=== PATIENT | female | born 1955 | race Asian ===

== ENCOUNTER 2016-10-21 14:20 | Day surgery (SDC) | payer OTHER ==
[~2016-10-21] VITALS: Ht 165.1 cm; Wt 62.3 kg
[2016-10-21 14:57] VITALS: Ht 165.1 cm; Wt 62.3 kg
[2016-10-21] MEDS ORDERED: AMLO5TAB4 PO (15:03)
[2016-10-21] MEDS ORDERED: FENTAnyl 50 MCG/ML VIAL ONE (17:12)
[2016-10-21] MEDS ORDERED: MIDAZOLAM 1 MG/ML 2 ML INJ ONE (17:12)
--- NOTE | 2016-10-21 17:21 | GILP ---
DATE OF PROCEDURE: 10/21/2016 PROCEDURE: Screening colonoscopy to rule out colon polyps. SURGEON: Craig Day MD POSTOPERATIVE DIAGNOSES: 1. A 6 mm polyp noted with a very small pedicle. This was removed with the hot biopsy forceps and hemoclip was applied. 2. There is a 3 mm polyp noted at 20 cm from the anus. This was also removed with a cold biopsy fo rceps. 3. Minimal internal and minimal external hemorrhoids. DESCRIPTION OF PROCEDURE: After the informed written consent was obtained, the patient was asked to lie on the left lateral side. Intravenous anesthesia was given which included 2 mg of Versed and 7 5 mcg of fentanyl. When the patient became somnolent, the Olympus video colonoscope was introduced into the rectum and advanced all the way to the cecum. At about 5 cm from the anus, there is eviden ce of a 6 mm polyp with a small stalk noted. This polyp was removed by using the hot biopsy forceps and also for better healing and to prevent bleeding, 1 hemoclip was applied. At 20 cm from the saqib s, there is evidence of a 3 mm flat polyp noted. This was removed with the cold biopsy forceps. Re st of the colon appeared normal up to the cecum. Endoscope at this time was withdrawn from the cecu m. On the way out, no further evaluation was carried out, minimal internal and external hemorrhoids were noted and the procedure was terminated. PLAN: Recommend wait for the pathology report. Dictated By: CRAIG STEPHENSON/NTS Conf#: [id number] DID#: [id number] CC: CRAIG DAY MD; ;*EndCC*
[2016-10-21 17:55] VITALS: BP 111/60; RESP 12
== END 2016-10-21 17:33 | disposition home or self-care (01) ==
LOC: GIL 14:20
PROVIDERS: ATTEND Internal Medicine Gastroenterology
DX: Z12.11 Encounter for screening for malignant neoplasm of colon (principal); K63.5 Polyp of colon; K64.4 Residual hemorrhoidal skin tags; K64.8 Other hemorrhoids
CPT/HCPCS: 45380; 88305; 88313; J2250; J3010; Z7610